=== PATIENT | male | born 1955 | race Caucasian/White ===

== ENCOUNTER 2016-10-19 08:20 | Outpatient (CLI) | payer OTHER ==
[2016-10-19 09:13] LABS: eGFR (African) > 60; eGFR (Non-African) > 60
== END 2016-10-19 08:22 ==
LOC: LAB 08:20
PROVIDERS: ATTEND Family Medicine
DX: E78.5 Hyperlipidemia, unspecified (principal); Z11.59 Encounter for screening for other viral diseases; R73.9 Hyperglycemia, unspecified
CPT/HCPCS: 36415; 80053; 83036; 86803

== ENCOUNTER 2016-10-26 10:35 | Outpatient (CLI) | payer OTHER | END 2016-10-26 10:36 | LOC: LABRHC 10:35 | PROVIDERS: ATTEND Family Medicine | DX: E78.5 Hyperlipidemia, unspecified (principal) | CPT/HCPCS: 80061; 83825 ==

== ENCOUNTER 2016-12-15 07:37 | Day surgery (SDC) | payer OTHER ==
[2016-12-15] MEDS ORDERED: PROPOFOL 500 MG/50 ML VIAL IV ONE (08:00)
[2016-12-15] MEDS ORDERED: SALINE FLUSH 10 ML DISP.SYRIN IVF ONE (08:00)
[2016-12-15] MEDS ORDERED: LACTATED RINGERS 1,000 ML IV.SOLN IV ONE (08:00)
[2016-12-15] MEDS ORDERED: GLYCOPYRROLATE 0.2 MG/1 ML 1 ML ONE (08:00)
--- NOTE | 2016-12-15 13:40 | Operative Note ---
SURGEON: James Asher MD ANESTHESIA: MAC anesthesia. ESTIMATED BLOOD LOSS: None. FINDINGS: Sigmoid diverticulosis, otherwise, normal colonoscopy. PREOPERATIVE DIAGNOSIS: Screening colonoscopy. POSTOPERATIVE DIAGNOSIS: Screening colonoscopy. PROCEDURE PERFORMED: Colonoscopy to cecum. DESCRIPTION OF PROCEDURE: Patient was brought to the operating room and placed in the left lateral decubitus position. MAC anesthesia was administered by the managing attorney. A rectal exam was performed which was normal. The colonoscope was inserted and passed easily to the cecum. The appendiceal orifice and ileocecal valve were identified. The colonoscope was slowly retracted being careful to inspect all petit. There no polyps or other lesions noted. He did have some sigmoid diverticulosis with no evidence of inflammation. The colonoscope was removed. The patient tolerated the procedure well. Greater than 6 minutes were taken to retract the scope. DISPOSITION: I recommend a repeat colonoscopy in 10 years. MTDD
== END 2016-12-15 07:40 ==
LOC: OPSURG 07:37
PROVIDERS: ATTEND Colon & Rectal Surgery
DX: Z12.11 Encounter for screening for malignant neoplasm of colon (principal); K57.32 Diverticulitis of large intestine without perforation or abscess without bleeding
CPT/HCPCS: 45378; J2704; J3490; J7120; S1016

== ENCOUNTER 2018-06-08 08:56 | Outpatient (CLI) | payer OTHER ==
[2018-06-08 09:49] LABS: eGFR (Non-African) > 60
== END 2018-06-08 09:08 ==
LOC: LAB 08:56
PROVIDERS: ATTEND Family Medicine
DX: E78.5 Hyperlipidemia, unspecified (principal); M19.90 Unspecified osteoarthritis, unspecified site
CPT/HCPCS: 36415; 80053; 80061; 86431

== ENCOUNTER 2018-10-16 07:50 | Outpatient (CLI) | payer OTHER | END 2018-10-16 07:52 | LOC: LAB 07:50 | PROVIDERS: ATTEND Family Medicine | DX: E78.5 Hyperlipidemia, unspecified (principal) | CPT/HCPCS: 36415; 80061 ==